=== PATIENT | female | born 1980 | race Caucasian/White ===

== ENCOUNTER → 2020-07-14 08:25 | Outpatient (CLI) | payer OTHER, SELFPAY ==
[2020-07-14 08:48] LABS: COVID19 -Nasal RAPID Negative (Negative)
== END ==
PROVIDERS: Family Provider Family Medicine; PCP Family Medicine; Visit Provider Nurse Practitioner
DX: R05 Cough (principal); R06.02 Shortness of breath; R09.81 Nasal congestion; R53.83 Other fatigue
CPT/HCPCS: 87635

== ENCOUNTER → 2020-10-04 08:44 | Outpatient (CLI) | payer OTHER, SELFPAY ==
[2020-10-04 09:19] LABS: COVID19 -Nasal RAPID Negative (Negative)
== END ==
PROVIDERS: Family Provider Family Medicine; PCP Family Medicine; Visit Provider Physician Assistant
DX: J02.9 Acute pharyngitis, unspecified (principal)
CPT/HCPCS: 87070; 87635

== ENCOUNTER 2021-06-09 10:52 | Emergency (ER) | payer OTHER, SELFPAY ==
[2021-06-09 10:55] VITALS: BP 131/82; PULSE 85; RESP 18; TEMP 36.4; O2SAT 99
[2021-06-09] MEDS: LIDO 1%/SOD BICARB 8.4% (10ML) 10 ML SYRINGE INJ (12:07)
[2021-06-09] MEDS: BACITRACIN OINT 0.9 GM PCKT 1 APPLIC TOP (12:15)
[2021-06-09] MEDS: LIDOCAINE/PRILOCAINE 5 GM TOP (12:15)
--- NOTE | 2021-06-09 12:24 | ED.SKABFB ---
HPI - Skin/Abscess/Foreign Bdy <JOSLYN Dennis - Last Filed: 06/09/21 12:41> General Chief complaint: Skin/Abscess/Foreign Body Stated complaint: cut left hand Time Seen by Provider: 06/09/21 12:01 Source: patient Mode of arrival: Ambulatory Limitations: no limitations History of Present Illness HPI narrative: 40-year-old female presents to the emergency department for laceration/avulsion of her left index finger just prior to arrival. 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 There is no flap of skin it was fully cut off, bleeding was controlled with pressure the patient reports that took approximately 30 minutes to get the bleeding to stop. She is up-to-date on her tetanus, she denies taking any anticoagulants, patient reports this has happened to her many times in the past. Related Data Home Medications Medication Instructions Recorded Confirmed No Known Home Medications 10/04/20 06/09/21 Allergies Allergy/AdvReac Type Severity Reaction Status Date / Time christie Allergy Intermediate Hives Verified 06/09/21 10:59 oxycodone [From Percocet] Allergy Verified 06/09/21 10:59 Review of Systems <JOSLYN Dennis - Last Filed: 06/09/21 12:41> Review of Systems Narrative: General: denies fever, chills Cardio: denies chest pain, palpitations Respiratory: denies shortness of breath, cough MSK: denies joint pain, muscle weakness, CSM changes Skin: denies rash, itching, laceration to the distal tip of her left index finger Neuro: denies numbness, tingling Patient History <JOSLYN Dennis - Last Filed: 06/09/21 12:41> Medical History No significant medical problems Pharyngitis Social History Smoking Status: Current every day smoker Smoking Status: Current every day smoker alcohol intake frequency: a few times a month Substance Use Type: does not use Exam <JOSLYN Dennis - Last Filed: 06/09/21 12:41> Narrative Exam Narrative: Independently reviewed vitals signs and nursing notes. General: Awake, alert, nontoxic, no cardiorespiratory distress Head/Neck: Atraumatic, neck full range of motion Cardio: Regular rate and rhythm, no peripheral edema Respiratory: respirations unlabored MSK: Moves all extremities, neurovascularly intact, full strength and range of motion of her left index finger without any suspicion for tendon injury or foreign body Skin: Normal capillary refill, no rash, no wound edges to approximate, avulsion laceration approximately 0.5 cm x 0.25 cm of the distal tip of her left index finger. Wound was cleaned with normal saline and gauze, Surgicel applied as wound started to bleed after cleaning, bleeding stopped, bacitracin applied, Band-Aid applied Neuro: Normal speech and cognition, normal gait Initial Vital Signs Initial Vital Signs: Vital Signs Temperature 97.5 F L 06/09/21 10:55 Pulse Rate 85 06/09/21 10:55 Respiratory Rate 18 06/09/21 10:55 Blood Pressure 131/82 06/09/21 10:55 Pulse Oximetry 99 06/09/21 10:55 <Laurie Bennett DO - Last Filed: 06/09/21 18:52> Initial Vital Signs Initial Vital Signs: Vital Signs Temperature 97.5 F L 06/09/21 10:55 Pulse Rate 85 06/09/21 10:55 Respiratory Rate 18 06/09/21 10:55 Blood Pressure 131/82 06/09/21 10:55 Pulse Oximetry 99 06/09/21 10:55 Course <JOSLYN Dennis - Last Filed: 06/09/21 12:41> Orders Ordered: Discontinued Medications Bacitracin (Bacitracin Oint 0.9 Gm Pckt) 1 applic TOP NOW ONE Stop: 06/09/21 12:13 Last Admin: 06/09/21 12:15 Dose: 1 applic Documented by: BRYANNA Ibuprofen (Ibuprofen 400 Mg Tablet) 800 mg PO NOW ONE Stop: 06/09/21 12:26 Last Admin: 06/09/21 12:28 Dose: 800 mg Documented by: KARLY Lidocaine/Prilocaine (Lidocaine/Prilocaine 5 Gm) 5 gm TOP NOW ONE Stop: 06/09/21 12:12 Last Admin: 06/09/21 12:15 Dose: 5 gm Documented by: BRYANNA Lidocaine/Sodium Bicarbonate (Lido 1%/Sod Bicarb 8.4% (10ml) 10 Ml Syringe) 10 ml INJ NOW ONE Stop: 06/09/21 12:04 Last Admin: 06/09/21 12:07 Dose: 10 ml Documented by: KARLY Vital Signs Vital signs: Vital Signs - 8 hr 06/09/21 10:55 Temperature 97.5 F L Pulse Rate 85 Respiratory Rate 18 Blood Pressure 131/82 Pulse Oximetry 99 <Laurie Bennett DO - Last Filed: 06/09/21 18:52> Orders Ordered: Discontinued Medications Bacitracin (Bacitracin Oint 0.9 Gm Pckt) 1 applic TOP NOW ONE Stop: 06/09/21 12:13 Last Admin: 06/09/21 12:15 Dose: 1 applic Documented by: BRYANNA Ibuprofen (Ibuprofen 400 Mg Tablet) 800 mg PO NOW ONE Stop: 06/09/21 12:26 Last Admin: 06/09/21 12:28 Dose: 800 mg Documented by: KARLY Lidocaine/Prilocaine (Lidocaine/Prilocaine 5 Gm) 5 gm TOP NOW ONE Stop: 06/09/21 12:12 Last Admin: 06/09/21 12:15 Dose: 5 gm Documented by: BRYANNA Lidocaine/Sodium Bicarbonate (Lido 1%/Sod Bicarb 8.4% (10ml) 10 Ml Syringe) 10 ml INJ NOW ONE Stop: 06/09/21 12:04 Last Admin: 06/09/21 12:07 Dose: 10 ml Documented by: KARLY Vital Signs Vital signs: Vital Signs - 8 hr 06/09/21 10:55 Temperature 97.5 F L Pulse Rate 85 Respiratory Rate 18 Blood Pressure 131/82 Pulse Oximetry 99 MDM - Skin/Abscess/Foreign Bdy <JOSLYN Dennis - Last Filed: 06/09/21 12:41> MDM Narrative Medical decision making narrative: 40-year-old right-handed female with avulsion laceration of the distal tip of her left index finger while she was cutting some vegetables at work just prior to arrival. Patient's tetanus is up-to-date, wound was cleaned with normal saline, Surgicel applied after wound started bleeding after cleaning. Bleeding controlled, bacitracin applied, Band-Aid applied. Patient understands to keep her finger tip covered at all times, no suspicion for tendon injury or foreign body. She is off work for the weekend, understands to keep it covered with the Band-Aid and at least a glove if she returns to work next week. Patient is appropriate and amenable to discharge home. Vital signs are stable on repeat examination is unremarkable. Patient has been informed of results. Patient has been given strict return to ER precautions for any new or worsening symptoms. Patient understands to follow up closely with outpatient providers as instructed. Patient understands plan and agrees to discharge home. All questions and concerns answered at this time. Discharge Plan Departure Patient Disposition: Home Clinical Impression: Laceration of finger of left hand without damage to nail Qualifiers: Encounter type: initial encounter Finger: index finger Foreign body presence: without foreign body Qualified Code(s): S61.211A - Laceration without foreign body of left index finger without damage to nail, initial encounter Instructions: DI for Laceration Repair -- Simple Activity Restrictions/Additional Instructions: *You have been diagnosed with a laceration to your left index finger without repair. I am sorry I was unable to her help much today, and I am sorry about your pain. This should start to feel better in a couple days. Keep it covered while it is open to help protect it from infection, keep it covered in a glove at all times while at work. You have some more of that Surgicel or quick clot and you may place that on their if you bump bed and it starts bleeding. Try to keep it protected with an extra long Band-Aid InCase it gets bumped on things. Ibuprofen every 6-8 hours for pain, I hope it feels better soon. If you develop any redness or streaking up your finger, please return to the emergency department or walk-in clinic for antibiotics. Have a good rest of your day. *What to do: *Please continue to take your regular medications as directed. [ ] New medication prescriptions sent to your pharmacy: [ ] [ ] New medication written as a paper prescription [x ] No new medications given *Please follow up with your primary care provider in 2-3 days, call for an appointment. Let them know you were seen in the Emergency Department and that we ask that you be seen in follow up. We will electronically transmit a record of today's note if your PCP is in our system *If you do not have a primary care provider please contact the [facility] Resource line at [phone]. They will ask some questions about your medical history and help get you set up with a doctor in the community. *Return to Emergency Department if you should have any new, worsening or concerning symptoms, such as [fever greater than 101F, chills, worsening pain, persistent vomiting or other bothersome symptoms] Prescriptions: No Action No Known Home Medications 0RF Referrals: Jostin Mcadams MD [Primary Care Provider] - <Laurie Bennett DO - Last Filed: 06/09/21 18:52> Cosign ED Attending Katherineature Attestation: I was immediately available in the department for consultation. Documentation has been reviewed.
[2021-06-09] MEDS: IBUPROFEN 400 MG TABLET 800 MG PO (12:28)
== END 2021-06-09 12:32 | disposition home or self-care (01) ==
PROVIDERS: Emergency Provider Nurse Practitioner Critical Care Medicine; Family Provider Family Medicine; PCP Family Medicine
DX: S61.211A Laceration without foreign body of left index finger without damage to nail, initial encounter (principal); F17.200 Nicotine dependence, unspecified, uncomplicated; W26.0XXA Contact with knife, initial encounter; Y93.G1 Activity, food preparation and clean up; Y99.0 Civilian activity done for income or pay
CPT/HCPCS: 99282; 99284

== ENCOUNTER → 2023-02-07 07:39 | Outpatient (CLI) | payer OTHER, SELFPAY | PROVIDERS: Family Provider Family Medicine; PCP Family Medicine; Visit Provider Physician Assistant | DX: N39.0 Urinary tract infection, site not specified (principal) | CPT/HCPCS: 87086 ==

== ENCOUNTER 2023-02-07 16:59 | Emergency (ER) | payer OTHER, SELFPAY ==
[2023-02-07 17:06] VITALS: BP 150/76; PULSE 98; RESP 18; TEMP 36.8; O2SAT 100; BMI 23.5
--- NOTE | 2023-02-07 17:22 | DI.US.S_ITS ---
PROCEDURE: US ABDOMEN LIMITED INDICATIONS: RUQ pain eval for GB pathology TECHNIQUE: Real-time scanning was performed of the abdominal and retroperitoneal organs, with image documentation. COMPARISON: None. FINDINGS: Liver: Liver is normal in size at 14.2 cm and homogeneous in echotexture. Gallbladder: Gallbladder is contracted. There are no calcified stones or gallbladder wall thickening. No pericholecystic fluid. Biliary ducts: Intrahepatic bile ducts are non-dilated. Extrahepatic bile duct caliber measures 3 mm. Normal is 6-7 mm or less in diameter, or 10 mm or less post-cholecystectomy. Pancreas: Visualized portions of the pancreas are sonographically normal. IMPRESSION: No cholelithiasis or sonographic evidence acute cholecystitis. Dictated by: Angie Garcia M.D. on 02/07/2023 at 18:47 Approved by: Angie Garcia M.D. on 02/07/2023 at 18:48
[2023-02-07 17:33] LABS: Add Manual Diff / Slide Review NO; Basophils Absolute Auto 100 /uL (0-100); Basophils Percent Auto 0.5 % (0-2); Eosinophils Absolute Auto 100 /uL (0-450); Eosinophils Percent Auto 1.1 % (2-4); Hematocrit 34.5 % (36-46); Hemoglobin 11.8 g/dL (12.0-16.0); Lymphocytes Absolute Auto 2100 /uL (1100-4500); Lymphocytes Percent Auto 16.2 % (25-40); Mean Corpuscular HGB Conc 34.2 % (30-36); Mean Corpuscular Hemoglobin 31.9 PG (26-34); Mean Corpuscular Volume 93.5 fL (80-100); Monocytes Absolute Auto 1800 /uL (0-900); Monocytes Percent Auto 14.1 % (3-14); Neutrophils Absolute Auto 8900 /uL (1500-7000); Neutrophils Percent Auto 68.1 % (50-75); Platelet Count 274 X10^3/uL (150-400); Red Blood Cell Count 3.69 X10^6/uL (4.0-5.2); Red Cell Distribution Width 14.4 % (11.6-14.8); White Blood Cell Count 13.1 X10^3/uL (4.5-11.0)
[2023-02-07 17:43] LABS: Alanine Aminotransferase 17 IU/L (<35); Albumin 3.8 g/dL (3.5-5.0); Albumin Globulin Ratio 1.3 (1.0-2.8); Alkaline Phosphatase 58 U/L (38-126); Aspartate Aminotransferase 22 IU/L (14-36); BUN Creatinine Ratio 14.5 (6-22); Bilirubin Total 0.4 mg/dL (0.2-1.3); Blood Urea Nitrogen 9 mg/dL (7-17); Calcium 8.7 mg/dL (8.4-10.2); Carbon Dioxide 21 mmol/L (22-32); Chloride 106 mmol/L (98-107); Estimated Glomerular Filt Rate > 60 mL/min (>60); Glucose 133 mg/dL (70-100); HEMOLYSIS < 15 (0-50); Lipase 106 U/L (23-300); Potassium 3.7 mmol/L (3.4-5.1); Sodium 134 mmol/L (137-145); Total Protein 6.8 g/dL (6.3-8.2)
--- NOTE | 2023-02-07 18:12 | ED.ABDPAIN ---
HPI - Abdominal Pain General Chief Complaint: Abdominal Pain Stated Complaint: sent by [facility], ? gallsienaladder issues Time Seen by Provider: 02/07/23 17:22 Source: patient Mode of arrival: Ambulatory History of Present Illness HPI narrative: 42-year-old female daily smoker without chronic medical history presents from the walk-in clinic for evaluation of lower pelvic fullness and right upper quadrant pain. She denies any dysuria, frequency or urgency. She is had no hematuria. She denies fever or chills. She is been having this abdominal pain for the past few days and denies any obvious provocation or palliation. She denies any dietary change or vomiting. She has no diarrhea or constipation. She denies vaginal bleeding or discharge. She was seen and evaluated at the walk-in clinic and sent here for evaluation of possible gallbladder disease. Related Data Home Medications Medication Instructions Recorded Confirmed No Known Home Medications 10/04/20 06/09/21 Allergies Allergy/AdvReac Type Severity Reaction Status Date / Time christie Allergy Intermediate Hives Verified 06/09/21 10:59 oxycodone [From Percocet] Allergy Verified 06/09/21 10:59 Review of Systems Review of Systems Narrative: GENERAL: See HPI HEENT: Denies sinus pain, ear pain, sore throat, difficulty swallowing, dizziness. RESPIRATORY: Denies dyspnea, cough, wheezing, hemoptysis, sputum. CARDIOVASCULAR: Denies chest pain, palpitations, orthopnea, edema, GASTROINTESTINAL: See HPI : See HPI MUSCULOSKELETAL: denies weakness, joint pain, or bony pain SKIN: Denies rash, skin lesions, or other NEUROLOGIC: Denies weakness, headache, numbness, change in speech, confusion, seizures, incoordination. PSYCHIATRIC: No concerning psychosocial issues. 12 point review of systems is negative except for those stated above Patient History Medical History No significant medical problems Pharyngitis Social History Smoking Status: Current every day smoker Smoking Status: Current every day smoker alcohol intake frequency: a few times a month Substance Use Type: does not use Exam Narrative Exam Narrative: GENERAL: [42] year old patient appears stated age. Well-developed patient, in mild distress. HEAD: Atraumatic. Normocephalic. EYES: Pupils equal round and reactive. Extraocular motions intact. No scleral icterus. No injection or drainage. ENT: Nose without bleeding, purulent drainage. Throat without erythema, tonsillar hypertrophy or exudate. Airway patent. NECK: Trachea midline. Non tender CARDIOVASCULAR: Regular rate and rhythm without murmurs, gallops, or rubs. RESPIRATORY: Clear to auscultation. Breath sounds equal bilaterally. No wheezes, rales, or rhonchi. GASTROINTESTINAL: Abdomen soft, minimally tender in the right upper quadrant, nondistended. Bowel sounds present in all 4 quadrants EXTREMITIES: No edema or joint tenderness. BACK: Nontender without deformity or crepitance. No flank tenderness. NEURO: AOx3. SKIN: No rash or erythema of visible areas Initial Vital Signs Initial Vital Signs: Vital Signs Temperature 98.3 F 02/07/23 17:06 Pulse Rate 98 H 02/07/23 17:06 Respiratory Rate 18 02/07/23 17:06 Blood Pressure 150/76 H 02/07/23 17:06 Pulse Oximetry 100 02/07/23 17:06 Oxygen Delivery Method Room Air 02/07/23 17:06 Course Orders Ordered: ED Orders 02/07/23 17:18 Complete Blood Count AUTO DIFF Stat Comprehensive Metabolic Panel Stat Lipase Stat 02/07/23 17:22 US abdomen limited Stat Ondansetron HCl (Ondansetron 4 Mg/2 Ml Inj) 4 mg IV NOW PRN PRN Reason: Nausea And Vomiting Vital Signs Vital signs: Vital Signs - 8 hr 02/07/23 17:06 Temperature 98.3 F Pulse Rate 98 H Respiratory Rate 18 Blood Pressure 150/76 H Pulse Oximetry 100 Oxygen Delivery Method Room Air MDM - Abdominal Pain Lab Data 02/07/23 17:18 02/07/23 17:18 Labs: Lab Results 02/07/23 02/07/23 Range/Units 17:18 17:18 WBC 13.1 H (4.5-11.0) X10^3/uL RBC 3.69 L (4.0-5.2) X10^6/uL Hgb 11.8 L (12.0-16.0) g/dL Hct 34.5 L (36-46) % MCV 93.5 (80-100) fL MCH 31.9 (26-34) PG MCHC 34.2 (30-36) % RDW 14.4 (11.6-14.8) % Plt Count 274 (150-400) X10^3/uL Neut % (Auto) 68.1 (50-75) % Lymph % (Auto) 16.2 L (25-40) % [place] % (Auto) 14.1 H (3-14) % Eos % (Auto) 1.1 L (2-4) % Baso % (Auto) 0.5 (0-2) % Neut # (Auto) 8900 H (5224-4803) /uL Lymph # (Auto) 2100 (8198-8205) /uL [place] # (Auto) 1800 H (0-900) /uL Eos # (Auto) 100 (0-450) /uL Baso # (Auto) 100 (0-100) /uL Sodium 134 L (137-145) mmol/L Potassium 3.7 (3.4-5.1) mmol/L Chloride 106 (98-107) mmol/L Carbon Dioxide 21 L (22-32) mmol/L BUN 9 (7-17) mg/dL Creatinine 0.62 (0.52-1.04) mg/dL Estimated GFR > 60 (>60) mL/min BUN/Creatinine Ratio 14.5 (6-22) Glucose 133 H (70-100) mg/dL Calcium 8.7 (8.4-10.2) mg/dL Total Bilirubin 0.4 (0.2-1.3) mg/dL AST 22 (14-36) IU/L ALT 17 (<35) IU/L Alkaline Phosphatase 58 (38-126) U/L Total Protein 6.8 (6.3-8.2) g/dL Albumin 3.8 (3.5-5.0) g/dL Globulin 3.0 (1.7-4.1) g/dL Albumin/Globulin Ratio 1.3 (1.0-2.8) Lipase 106 (23-300) U/L [facility] Narrative Medical decision making narrative: [42] year old patient presents with right upper quadrant pain Multiple etiologies for patient's symptoms considered including, but not limited to: [Gallbladder disease versus liver disease versus kidney infection versus other] Prior Charts reviewed in our EMR Primary Historian: patient Labs reviewed and interpreted by myself: Urine obtained at walk-in clinic shows no obvious infection, sent for culture. White blood cell slightly elevated at 13,000 thousand, no left shift, electrolytes, LFTs, bilirubin and lipase all within normal Imaging reviewed: Abdominal ultrasound without acute findings Patient's symptoms improved over duration of stay with above-stated therapies. Patient's pain is well controlled, she is tolerating orals, she has reassuring labs and no obvious diagnosis at this point. Given how well she feels we discussed the utility of further evaluation in the form of a CT scan versus watchful waiting over the next 24 hours or so and follow up with her primary care provider. We did discuss the risks and benefits of each option and sure the opinion that discharge at this time is appropriate. She is been given return precautions Findings and discharge diagnosis discussed with patient/family followed by verbalization of understanding Return precautions discussed with patient/family whom verbalize understanding of diagnosis and plan Discharge Plan Departure Patient Disposition: Home Clinical Impression: Right upper quadrant abdominal pain Instructions: Acute Abdominal Pain Activity Restrictions/Additional Instructions: *You have been diagnosed with [abdominal pain] * As we discussed your history and physical exam as well as labs and imaging are very reassuring. There is no evidence of any severe diagnoses that would require a specific or immediate intervention. *What to do: *Please continue to take your regular medications as directed. *Please follow up with your primary care provider in 2-3 days, call for an appointment. Let them know you were seen in the Emergency Department and that we ask that you be seen in follow up. We will electronically transmit a record of today's note if your PCP is in our system *Please consider a clear liquid diet for the next 24-48 hours and then slowly advance to regular as tolerated. Also, try to avoid alcohol, nicotine, caffeine, spicy, acidic or fatty foods as this may worsen your symptoms *Return to Emergency Department if you should have any new, worsening or concerning symptoms, such as [fever greater than 101 F, shaking chills, worsening pain, persistent vomiting or other bothersome symptoms] There is a culture pending of your urine, if it ends up demonstrating evidence of infection we will call you Prescriptions: No Action No Known Home Medications Referrals: Jostin Mcadams MD [Primary Care Provider] - Stand Alone Forms: Patient Portal/API
[2023-02-07 19:28] VITALS: BP 111/66; PULSE 72; RESP 18; O2SAT 96
== END 2023-02-07 19:32 | disposition home or self-care (01) ==
PROVIDERS: Emergency Medicine; Emergency Provider Emergency Medicine; Family Provider Family Medicine; PCP Family Medicine
DX: R10.11 Right upper quadrant pain (principal); N39.0 Urinary tract infection, site not specified
CPT/HCPCS: 36415; 76705; 80053; 83690; 85025; 87077; 87086; 87186; 99283; 99284